=== PATIENT | male | born 1990 | race Caucasian/White ===

== ENCOUNTER 2018-12-22 12:31 | Emergency (ER) | payer MEDICAID, OTHER ==
[~2018-12-22] VITALS: Ht 182.9 cm; Wt 118.5 kg
[~2018-12-22 12:31] MED LIST: DIVA250T PO; TRAZ-137 PO
[2018-12-22 12:59] VITALS: BP 153/65
[2018-12-22] MEDS ORDERED: IBUPROFEN 200 MG TABLET ONE (13:50)
[2018-12-22] MEDS ORDERED: IBUPROFEN 800 MG TABLET PO ONE (14:00)
--- NOTE | 2018-12-22 14:00 | NUR ---
Patient refusing crutches and rocker shoe.
--- NOTE | 2018-12-22 14:28 | NUR ---
ROCKER SHOE APPLIED.
== END 2018-12-22 14:30 | disposition home or self-care (01) ==
LOC: ED 13:32
DX: S92.514A Nondisplaced fracture of proximal phalanx of right lesser toe(s), initial encounter for closed fracture (principal); S92.521A Displaced fracture of middle phalanx of right lesser toe(s), initial encounter for closed fracture; W22.09XA Striking against other stationary object, initial encounter; Y93.89 Activity, other specified; Y92.009 Unspecified place in unspecified non-institutional (private) residence as the place of occurrence of the external cause; Y99.8 Other external cause status
CPT/HCPCS: 99283